=== PATIENT | male | born 1970 | race Hispanic/Latino ===

== ENCOUNTER → 2023-11-27 | Day surgery (SDC) | payer OTHER ==
[~2023-11-27] MED LIST: GARLIQUE PO; MAGNESIUM PO; MULTI-VITAMIN1 EACH PO; OSTEO BI-FLEX1 EAC2 PO
[2023-11-27] MEDS: LACTATED RINGER'S 1,000 ML ONE (09:06)
== END | disposition home or self-care (01) ==
LOC: OR 08:28
PROVIDERS: ATTEND Internal Medicine Gastroenterology
DX: Z12.11 Encounter for screening for malignant neoplasm of colon (principal); Z01.810 Encounter for preprocedural cardiovascular examination; Z53.8 Procedure and treatment not carried out for other reasons
CPT/HCPCS: 93005; J7121